=== PATIENT | female | born 1990 | race Caucasian/White ===

== ENCOUNTER 2020-01-28 10:27 | Emergency (ER) | payer MEDICAID ==
[~2020-01-28] VITALS: Ht 171.4 cm; Wt 86.2 kg
[2020-01-28 10:29] VITALS: BP 107/62
--- NOTE | 2020-01-28 10:29 | NUR ---
PT TO ER BED 1
--- NOTE | 2020-01-28 10:34 | NUR ---
PT AMB TO BATHROOM, WILL PROVIDE URINE SAMPLE Addendum: 01/28/20 at 1041 by ELIZA PT DROPPED URINE CUP IN TOILET. SAMPLE THROWN AWAY AND PT PROVIDED WITH NEW URINE CUP.
--- NOTE | 2020-01-28 10:40 | NUR ---
DR KRISHNAN AT BEDSIDE EVALUATING PT.
--- NOTE | 2020-01-28 10:41 | NUR ---
PT AMB TO BED 01.
[2020-01-28] MEDS ORDERED: LORazepam 1 MG TAB PO ONE (10:50)
--- NOTE | 2020-01-28 10:50 | NUR ---
PT WAS STRETCHING DURING ONSET OF CHEST DISCOMFORT. MILD NAUSEA, NO VOMITING. NO DIAPHORESIS.PT AWAKE ,ALERT, AFIBRILE ,AMBULATORY WITH STEADY GAIT, SCE ,CBS BLF . HX- DENIES
--- NOTE | 2020-01-28 11:00 | NUR ---
xray at bedside.
--- NOTE | 2020-01-28 13:00 | NUR ---
dr montejo at bedside reevaluating pt.
--- NOTE | 2020-01-28 13:25 | NUR ---
dr montejo at bedside reevaluating pt.
[2020-01-28 13:31] VITALS: BP 110/65
--- NOTE | 2020-01-28 13:32 | NUR ---
Patient discharged with v/s stable. Written and verbal after care instructions given and explained regarding nonspecific chest pain. Patient alert, oriented and verbalized understanding of instructions. Ambulatory with steady gait. All questions addressed prior to discharge. ID band removed. Patient advised to follow up with PMD. Rx of ativan given. Patient educated on indication of medication including possible reaction and side effects. Opportunity to ask questions provided and answered.
== END 2020-01-28 13:32 | disposition home or self-care (01) ==
LOC: MED 10:27
DX: F41.9 Anxiety disorder, unspecified (principal)
CPT/HCPCS: 71045; 93005; 99283; Q0092